=== PATIENT | male | born 1955 | race Caucasian/White ===

== ENCOUNTER 2016-12-11 18:26 | Emergency (ER) | payer OTHER ==
[~2016-12-11] VITALS: Ht 165.1 cm; Wt 79.8 kg
[2016-12-11 19:24] VITALS: BP 151/101
--- NOTE | 2016-12-11 22:03 | NUR ---
PT TAKEN TO BED 5
--- NOTE | 2016-12-11 22:29 | NUR ---
Dr. Dooley evaluating patient at bedside.
[2016-12-11] MEDS ORDERED: ACETAMIN/CODEINE 120/12MG-5ML 5 ML UDC PO ONE (22:30)
--- NOTE | 2016-12-11 22:30 | NUR ---
61/M BIB W/C/O FEVER AND BODY PAIN X5 DAYS. DENIES N/V/D. HX HTN . DENIES N/V/D; SKIN IS PINK/hot/DRY; AAOX4 WITH EVEN AND STEADY GAIT; LUNGS CLEAR BL; HR EVEN AND REGULAR; PT DENIES ANY FEVER, CP, SOB, OR COUGH AT THIS TIME; PATIENT STATES PAIN OF 9/10 AT THIS TIME; VSS; PATIENT POSITIONED FOR COMFORT; HOB ELEVATED; BEDRAILS UP X2; BED DOWN. ER MD MADE AWARE OF PT STATUS.
--- NOTE | 2016-12-11 22:31 | NUR ---
PT MOVED TO BED 6
--- NOTE | 2016-12-11 22:59 | NUR ---
cxr at bedside now
--- NOTE | 2016-12-11 23:40 | NUR ---
made aware of temp. new orders given.
[2016-12-11] MEDS ORDERED: KETOROLAC 30 MG/ML VIAL IM ONE (23:45)
[2016-12-11] MEDS ORDERED: ACETAMINOPHEN EXTRA STRENGTH 500 MG TAB PO ONE (23:45)
--- NOTE | 2016-12-11 23:58 | NUR ---
Patient discharged with v/s stable. Written and verbal after care instructions given and explained. Patient alert, oriented and verbalized understanding of instructions. Ambulatory with steady gait. All questions addressed prior to discharge. ID band removed. Patient advised to follow up with PMD. Rx of naprosyn, azithromycin, guaiatussin given. Patient educated on indication of medication including possible reaction and side effects. Opportunity to ask questions provided and answered.
[2016-12-11 23:59] VITALS: BP 128/66
== END 2016-12-11 23:58 | disposition home or self-care (01) ==
LOC: MED 18:26
DX: J20.9 Acute bronchitis, unspecified (principal)
CPT/HCPCS: 36415; 71010; 87804; 96372; 99285; J1885; Q0092